=== PATIENT | female | born 1955 ===

== ENCOUNTER 2016-10-24 00:26 | Emergency (ER) | payer OTHER ==
[2016-10-24 00:34] VITALS: TEMP 97.5
[2016-10-24 01:00] VITALS: BP 163/74; PULSE 75; RESP 18; O2SAT 98
== END 2016-10-24 01:10 | disposition home or self-care (01) | DRG 316 ==
LOC: ED 00:26
DX: T82.598A Other mechanical complication of other cardiac and vascular devices and implants, initial encounter (principal)
CPT/HCPCS: 99282